=== PATIENT | female | born 1970 | race Native Hawaiian/Other Pacific Islander ===

== ENCOUNTER 2017-12-22 11:20 | Emergency (ER) | payer OTHER ==
[2017-12-22 11:44] VITALS: BP 136/79; PULSE 82; RESP 18; TEMP 98; O2SAT 99
--- NOTE | 2017-12-22 13:17 | ED PDOC ---
HPI: CCC, URI, Sore Throat Time Seen by Provider: 12/22/17 12:27 Chief Complaint (Nursing): Flu-like Symptoms Chief Complaint (Provider): Flu like symptoms History Per: Patient History/Exam Limitations: no limitations Have you had recent travel within the past 21 days to any of the following countries: [place], [place], [place] or [place]?: No Onset/Duration Of Symptoms: Days Current Symptoms Are (Timing): Still Present Additional Complaint(s): 47yo female reports 3 days of fever with associated chills, bodyaches and cough. She denies any associated chest pain, shortness of breath, vomiting, diarrhea or rash. Of note, patient has a secondary complaints of dark colored urine with a foul smell. She denies any associated dysuria, abdominal pain or back pain. She has no other medical complaints. Past Medical History Reviewed: Historical Data, Nursing Documentation, Vital Signs Vital Signs: Last Vital Signs Temp 98.0 F 12/22/17 11:40 Pulse 82 12/22/17 11:40 Resp 18 12/22/17 11:40 BP 136/79 12/22/17 11:40 Pulse Ox 99 12/22/17 13:30 - Medical History PMH: No Chronic Diseases - Surgical History Surgical History: No Surg Hx - Family History Family History: States: No Known Family Hx - Home Medications Home Medications: Ambulatory Orders Medication Instructions Recorded Cefpodoxime [Vantin] 200 mg PO BID #14 tab 12/22/17 - Allergies Allergies/Adverse Reactions: Allergies Allergy/AdvReac Type Severity Reaction Status Date / Time aspirin Allergy URTICARIA Verified 12/22/17 11:40 ibuprofen [From Motrin] Allergy URTICARIA Verified 12/22/17 11:40 Review of Systems ROS Statement: Except As Marked, All Systems Reviewed And Found Negative Constitutional: Positive for: Fever, Chills, Malaise (bodyaches) Respiratory: Positive for: Cough. Negative for: Shortness of Breath Gastrointestinal: Negative for: Vomiting, Abdominal Pain, Diarrhea Genitourinary Female: Positive for: Other (dark urine, foul smelling). Negative for: Dysuria Musculoskeletal: Negative for: Back Pain Skin: Negative for: Rash Physical Exam - Reviewed Nursing Documentation Reviewed: Yes Vital Signs Reviewed: Yes - Physical Exam Appears: Positive for: Non-toxic, No Acute Distress Head Exam: Positive for: ATRAUMATIC, NORMAL INSPECTION, NORMOCEPHALIC Skin: Positive for: Warm Eye Exam: Positive for: EOMI, PERRL ENT: Positive for: Normal ENT Inspection, Other (moist mucosa). Negative for: Pharyngeal Erythema, Tonsillar Exudate, Tonsillar Swelling Neck: Positive for: Supple Cardiovascular/Chest: Positive for: Regular Rate, Rhythm Respiratory: Positive for: Normal Breath Sounds. Negative for: Respiratory Distress Gastrointestinal/Abdominal: Positive for: Soft. Negative for: Tenderness Back: Positive for: Normal Inspection. Negative for: L CVA Tenderness, R CVA Tenderness Neurologic/Psych: Positive for: Alert, Oriented - ECG O2 Sat by Pulse Oximetry: 99 (RA) Pulse Ox Interpretation: Normal Medical Decision Making Medical Decision Making: Impression: Fever, cough Foul smelling urine Plan: -- Urine culture -- Urinalysis Time: 1329 Rapid flu negative. UA results reviewed and indicates a UTI. Rocephin 1000mg IM ordered. Based on history, exam and diagnostic results plan will be for outpatient follow up. Advised to follow up with primary care physician in 1-2 days without fail. Advised to take medication as prescribed, drink plenty of fluids, bedrest, OTC motrin and robitussin for flu like symptoms. Return to the emergency room at any time for any new or worsening symptoms. Patient states she fully agrees with and understands discharge instructions. States that she agrees with the plan and disposition. Verbalized and repeated discharge instructions and plan. I have given the patient opportunity to ask any additional questions. Scribe Attestation: Documented by Shannan Perales acting as a scribe for YUSUF Sykes Provider Attestation: All medical record entries made by the Scribe were at my direction and personally dictated by me. I have reviewed the chart and agree that the record accurately reflects my personal performance of the history, physical exam, medical decision making, and the department course for this patient. I have also personally directed, reviewed, and agree with the discharge instructions and disposition. Disposition - Clinical Impression Clinical Impression: Viral illness, UTI (urinary tract infection) - Patient ED Disposition Is Patient to be Admitted: No Counseled Patient/Family Regarding: Studies Performed, Diagnosis, Need For Followup, Rx Given - Disposition Disposition: Routine/Home Disposition Time: 13:29 Condition: STABLE Additional Instructions: Thank you for letting us take care of you today. You were treated for viral illness, UTI. The emergency medical care you received today was directed at your acute symptoms. If you were prescribed any medication, please fill it and take as directed. It may take several days for your symptoms to resolve. Return to the Emergency Department if your symptoms worsen, do not improve, or if you have any other problems. Please contact your doctor in 2 days for re-evaluation and follow up / or call one of the physicians/clinics you have been referred to that are listed on the Patient Visit Information form that is included in your discharge packet. Bring any paperwork you were given at discharge with you along with any medications you are taking to your follow up visit. Our treatment cannot replace ongoing medical care by a primary care provider (PCP) outside of the emergency department. Thank you for allowing the [facility] team to be part of your care today. If you had a urine culture: It will take several days for the results, if any change in treatment is needed we will contact you. 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
[2017-12-22 13:22] LABS: SQUAMOUS EPITHIAL 6 /hpf (0-5); URINE BACTERIA MOD (<OCC); URINE BILIRUBIN NEGATIVE (NEGATIVE); URINE BLOOD MODERATE (NEGATIVE); URINE CLARITY CLOUDY (Clear); URINE COLOR AMBER (YELLOW); URINE GLUCOSE (UA) NEG (Normal); URINE LEUKOCYTE ESTERASE LARGE Leu/uL (Negative); URINE NITRATE POSITIVE (NEGATIVE); URINE PROTEIN >=500 mg/dL (NEGATIVE)
[2017-12-22] MEDS ORDERED: cefTRIAXone (Rocephin) 250 mg Inj IM STA (13:28)
== END 2017-12-22 14:34 | disposition home or self-care (01) ==
LOC: H.ER 11:20
DX: N39.0 Urinary tract infection, site not specified (principal); B34.9 Viral infection, unspecified; Z88.6 Allergy status to analgesic agent
CPT/HCPCS: 81003; 81025; 87086; 87181; 87804; 96372; 99283; J0696

== ENCOUNTER 2018-07-12 17:44 | Emergency (ER) | payer OTHER ==
[2018-07-12] MEDS ORDERED: Oxycodone/Acetaminophen 5/325 mg Tab PO STA (18:31)
[2018-07-12] MEDS ORDERED: Oxycodone/Acetaminophen 5/325 mg Tab ONE (19:07)
--- NOTE | 2018-07-12 19:24 | ED PDOC ---
Upper Extremity Pain/Injury Time Seen by Provider: 07/12/18 18:06 Chief Complaint (Nursing): Upper Extremity Problem/Injury Chief Complaint (Provider): Right shoulder pain for 2 days History Per: Patient History/Exam Limitations: no limitations Onset/Duration Of Symptoms: Days Current Symptoms Are (Timing): Still Present Additional Complaint(s): 47 yo female with HTN and high cholesterol presents for evaluation of right shoulder pain. PT states it began 2 days ago when she woke up. PT denies trauma or injury. Pt states she has not had pain in the past. Pt reports taking tylenol at 2pm. Pt denies chest pain, abdominal pain, SOB, etc. Past Medical History Reviewed: Historical Data, Nursing Documentation, Vital Signs Vital Signs: Last Vital Signs Temp 98.7 F 07/12/18 18:01 Pulse 84 07/12/18 18:01 Resp 16 07/12/18 18:01 BP 164/107 H 07/12/18 18:01 Pulse Ox 99 07/12/18 18:01 - Medical History PMH: HTN, Hyperlipidemia - Surgical History Surgical History: No Surg Hx - Family History Family History: States: No Known Family Hx - Living Arrangements Living Arrangements: With Family - Home Medications Home Medications: Ambulatory Orders Medication Instructions Recorded Cefpodoxime [Vantin] 200 mg PO BID #14 tab 12/22/17 oxyCODONE/Acetaminophen [Percocet 1 ea PO Q6H PRN #15 tab 07/12/18 5/325 mg Tab] - Allergies Allergies/Adverse Reactions: Allergies Allergy/AdvReac Type Severity Reaction Status Date / Time aspirin Allergy URTICARIA Verified 07/12/18 18:01 ibuprofen [From Motrin] Allergy URTICARIA Verified 07/12/18 18:01 Review of Systems ROS Statement: Except As Marked, All Systems Reviewed And Found Negative Constitutional: Negative for: Fever, Chills Cardiovascular: Negative for: Chest Pain, Palpitations Respiratory: Negative for: Shortness of Breath Gastrointestinal: Negative for: Nausea, Vomiting Musculoskeletal: Positive for: Shoulder Pain Physical Exam - Reviewed Nursing Documentation Reviewed: Yes Vital Signs Reviewed: Yes - Physical Exam Appears: Positive for: Well, Non-toxic, No Acute Distress Head Exam: Positive for: ATRAUMATIC, NORMAL INSPECTION, NORMOCEPHALIC Skin: Positive for: Normal Color, Warm, DRY Eye Exam: Positive for: Normal appearance ENT: Positive for: Normal ENT Inspection Neck: Positive for: Normal Cardiovascular/Chest: Positive for: Regular Rate, Rhythm Respiratory: Positive for: CNT, Normal Breath Sounds Pulses-Radial (L): 2+ Pulses-Radial (R): 2+ Back: Positive for: Normal Inspection Extremity: Positive for: Normal ROM, Tenderness ((+) tenderness proximal lateral humerus). Negative for: Deformity, Swelling Neurologic/Psych: Positive for: Alert - ECG O2 Sat by Pulse Oximetry: 99 Pulse Ox Interpretation: Normal Medical Decision Making Medical Decision Making: XR without acute abnormalities. Pt reports feeling better after percocet. Sling given. Disposition - Clinical Impression Clinical Impression: Shoulder pain - Patient ED Disposition Is Patient to be Admitted: No Counseled Patient/Family Regarding: Diagnosis, Need For Followup, Rx Given - Disposition Referrals: Isidoro Donnelly III, MD [Staff Provider] - Disposition: Routine/Home Disposition Time: 19:49 Condition: STABLE Prescriptions: oxyCODONE/Acetaminophen [Percocet 5/325 mg Tab] 1 ea PO Q6H PRN #15 tab PRN Reason: Pain, Severe (8-10) Instructions: Shoulder Pain (DC) Forms: [employer] ([place]ian), [facility] ED School/Work Excuse
[2018-07-12 20:13] VITALS: BP 134/85; PULSE 64; RESP 18; TEMP 98.6; O2SAT 98
--- NOTE | 2018-07-13 10:56 | RAD ---
Date of service: 07/12/2018 PROCEDURE: Radiographs of the Right Shoulder HISTORY: Pain, no trauma COMPARISON: No prior. FINDINGS: BONES: Bone alignment and mineralization are normal. There is no acute displaced fracture or bone destruction. JOINTS: Normal. Glenohumeral and acromioclavicular joints preserved. No osteoarthritis. SOFT TISSUES: Normal. OTHER FINDINGS: None. IMPRESSION: No acute fracture or dislocation.
== END 2018-07-12 20:13 | disposition home or self-care (01) ==
LOC: H.ER 17:44
DX: M25.511 Pain in right shoulder (principal); E78.5 Hyperlipidemia, unspecified; I10 Essential (primary) hypertension; Z88.6 Allergy status to analgesic agent